=== PATIENT | male | born 1950 | race Caucasian/White ===

== ENCOUNTER 2025-03-01 06:57 | Outpatient (CLI) | payer MEDICARE, SELFPAY ==
--- NOTE | 2025-03-01 08:14 | P.ANES_ITS ---
Anesthesia Charges Start Date/Time Anesthesia Start Date: 03/01/25 Anesthesia Start Time: 07:48 Stop Date/Time Anesthesia Stop Date: 03/01/25 Anesthesia Stop Time: 08:14 Summary Extremes of Age - Over 70 or under 1: GLASS INSTALLER Coding CPT Codes CPT Codes: ANEAlberto LWR INTST SCR COLSC - 89788 ([id number]) P2 - PATIENT W/MILD SYST DISEASE, QK - CITRIX ADMINISTRATOR 2-4 CNCRNT ANES PROC, QX - GLASS INSTALLER SVC W/ MD MED DIRECTION Additional Codes: Summary - Extremes of Age - Over 70 or under 1: GLASS INSTALLER ([id number])
--- NOTE | 2025-03-01 08:14 | W.ANESCHARGE ---
Anesthesia Charges Start Date/Time Anesthesia Start Date: 03/01/25 Anesthesia Start Time: 07:48 Stop Date/Time Anesthesia Stop Date: 03/01/25 Anesthesia Stop Time: 08:14 Summary Extremes of Age - Over 70 or under 1: SANDER MACHINE Coding CPT Codes CPT Codes: ANEAlberto LWR INTST SCR COLSC - 52658 ([id number]) P2 - PATIENT W/MILD SYST DISEASE, QK - WEB GRAPHIC DESIGNER 2-4 CNCRNT ANES PROC, QX - SANDER MACHINE SVC W/ MD MED DIRECTION Additional Codes: Summary - Extremes of Age - Over 70 or under 1: SANDER MACHINE ([id number])
--- NOTE | 2025-03-01 13:52 | P.ANES_ITS ---
Anesthesia Charges Start Date/Time Anesthesia Start Date: 03/01/25 Anesthesia Start Time: 07:48 Stop Date/Time Anesthesia Stop Date: 03/01/25 Anesthesia Stop Time: 08:14 Summary Extremes of Age - Over 70 or under 1: MDA Coding CPT Codes CPT Codes: ANES LWR INTST SCR COLSC - 50489 ([id number]) P2 - PATIENT W/MILD SYST DISEASE, QK - CHECKERING MACHINE ADJUSTER 2-4 CNCRNT ANES PROC, QX - HEAD OF HISTORY SVC W/ MD MED DIRECTION Additional Codes: Summary - Extremes of Age - Over 70 or under 1: MDA ([id number])
--- NOTE | 2025-03-01 13:52 | W.ANESCHARGE ---
Anesthesia Charges Start Date/Time Anesthesia Start Date: 03/01/25 Anesthesia Start Time: 07:48 Stop Date/Time Anesthesia Stop Date: 03/01/25 Anesthesia Stop Time: 08:14 Summary Extremes of Age - Over 70 or under 1: MDA Coding CPT Codes CPT Codes: ANES LWR INTST SCR COLSC - 11338 ([id number]) P2 - PATIENT W/MILD SYST DISEASE, QK - SALVAGER 2-4 CNCRNT ANES PROC, QX - MARKETING PROPOSAL SPECIALIST SVC W/ MD MED DIRECTION Additional Codes: Summary - Extremes of Age - Over 70 or under 1: MDA ([id number])
== END 2025-03-01 06:58 | disposition home or self-care (01) ==
LOC: OP CLINIC 07:06
PROVIDERS: Visit Provider Internal Medicine Gastroenterology
DX: Z12.11 Encounter for screening for malignant neoplasm of colon (principal); Z86.0101 Personal history of adenomatous and serrated colon polyps; K64.8 Other hemorrhoids; K57.30 Diverticulosis of large intestine without perforation or abscess without bleeding
CPT/HCPCS: 00812; 45378; 99100; J2704